=== PATIENT | female | born 2000 | race Caucasian/White ===

== ENCOUNTER 2024-02-01 08:38 | Inpatient (IN) | payer OTHER ==
[2024-02-01] VITALS (8 sets, daily range): BP systolic 100–120; BP diastolic 50–67; PULSE 64–70; RESP 18; TEMP 97–98.4; O2SAT 98–100
[~2024-02-01] VITALS: Ht 165.1 cm; Wt 70.3 kg
[2024-02-01 09:18] LABS: BASOPHILS # (AUTO) 0.1 K/uL (0.00-0.22); BASOPHILS % (AUTO) 0.4 % (0.0-2.0); EOSINOPHILS % (AUTO) 0.3 % (0.0-4.0); HEMATOCRIT 34.4 % (36-48); HEMOGLOBIN 11.4 g/dL (12.0-16.0); LYMPHOCYTES # (AUTO) 1.1 K/uL (2.5-16.5); MEAN CORPUSCULAR HEMOGLOBIN 28 pg (27-31); MEAN CORPUSCULAR HGB CONC 33 g/dL (33-37); MEAN CORPUSCULAR VOLUME 85.7 fL (80-94); MONOCYTES # (AUTO) 0.6 K/uL (0.8-1.0); MONOCYTES % (AUTO) 3.8 % (1.7-9.3); NEUTROPHILS # (AUTO) 14.4 K/uL (1.8-7.7); PLATELET COUNT (AUTO) 286 K/uL (140-450); RED BLOOD CELL COUNT(AUTO) 4.02 MIL/uL (4.20-5.40); RED CELL DISTRIBUTION WIDTH 14.2 % (11.6-13.7); WHITE BLOOD COUNT (AUTO) 16.2 K/uL (4.8-10.8)
[2024-02-01 09:33] LABS: LYMPHOCYTES % (AUTO) 6.9 % (20.5-51.1); NEUTROPHILS % (AUTO) 88.6 % (42.2-75.2)
[2024-02-01 09:44] LABS: CALCIUM 8.5 mg/dL (8.5-10.1); CARBON DIOXIDE 24.4 mmol/L (21-32); CREATININE 0.9 mg/dL (0.6-1.3); POTASSIUM 3.4 mmol/L (3.5-5.1)
[2024-02-01 09:50] LABS: ALBUMIN 3.8 g/dL (3.4-5.0); BILIRUBIN,DIRECT 0.1 mg/dL (0.0-0.3); TOTAL BILIRUBIN 0.4 mg/dL (0.0-1.0); TOTAL PROTEIN, SERUM 8.4 g/dL (6.4-8.2)
[2024-02-01] MEDS: NACL 0.9% 1,000 ML IV ONE (10:38)
[2024-02-01] MEDS: KETOROLAC 30 MG/ML VIAL IVP ONE (10:50)
[2024-02-01] MEDS: ONDANSETRON 4 MG/2 ML VIAL IVP ONE (10:50)
[2024-02-01 11:20] LABS: FLU A ANTIGEN negative (NEGATIVE); FLU B ANTIGEN NEGATIVE (NEGATIVE)
[2024-02-01] MEDS ORDERED: cefTRIAXone 1,000 MG VIAL ONE (13:27)
[2024-02-01 13:44] LABS: APPEARANCE,URINE CLEAR (CLEAR); BILIRUBIN,URINE NEGATIVE (NEGATIVE); BLOOD, URINE NEGATIVE (NEGATIVE); COLOR,URINE YELLOW (YELLOW); LEUKOCYTE ESTERASE ,URINE NEGATIVE (NEGATIVE); NITRITE, URINE NEGATIVE (NEGATIVE); PROTEIN,URINE NEGATIVE (NEGATIVE); UGLUCOSE NEGATIVE (NEGATIVE); UROBILINOGEN,URINE 0.2 EU/dL (0.2 - 1)
[2024-02-01] MEDS ORDERED: LORazepam 2 MG/ML VIAL IVP PRN (14:05)
[2024-02-01] MEDS ORDERED: MORPHINE SULFATE 2 MG/ML SYR IVP PRN (14:05)
[2024-02-01] MEDS ORDERED: ACETAMINOPHEN 325 MG TAB PO PRN (14:05)
[2024-02-01] MEDS ORDERED: ONDANSETRON 4 MG/2 ML VIAL IVP PRN ×3 (14:05→17:45)
[2024-02-01] MEDS: DEXT 5% /NACL 0.9% 1,000 ML IV SCH (14:05)
[2024-02-01] MEDS: metroNIDAZOLE 500 MG/NS PREMIX 100 ML IV ONE (14:10)
[2024-02-01] MEDS: LACTATED RINGERS 1,000 ML IV ONE (15:34)
[2024-02-01] MEDS: BUPIVACAINE-MPF 0.25% 30 ML VIAL INJ ONE (16:50)
[2024-02-01] MEDS: fentaNYL citrate 0.05 MG/ML VIAL ONE ×2 (16:54→17:05)
[2024-02-01] MEDS: ROCURONIUM 50 MG/5 ML VIAL IV ONE (16:55)
[2024-02-01] MEDS: MIDAZOLAM 2 MG/2 ML VIAL ONE (16:55)
[2024-02-01] MEDS: PROPOFOL 200 MG/20 ML VIAL IV ONE (16:55)
[2024-02-01] MEDS: KETOROLAC 60 MG/2 ML VIAL IM ONE (16:55)
[2024-02-01] MEDS: SUCCINYLCHOLINE CHLORIDE 200 MG/10 ML VIAL IVP ONE (16:56)
[2024-02-01] MEDS: ONDANSETRON 4 MG/2 ML VIAL ONE (16:56)
[2024-02-01] MEDS: NEOSTIGMINE 1:1000 10 MG/10 ML VIAL ONE (17:44)
[2024-02-01] MEDS ORDERED: OXYTOCIN 20 UNITS in LACTATED RINGERS 1,000 ML IV SCH (17:45)
[2024-02-01] MEDS ORDERED: HYDROmorphone 1 MG/ML AMP IVP PRN ×2 (17:45)
[2024-02-01] MEDS: GLYCOPYRROLATE 0.2 MG/ML VIAL ONE ×3 (17:45)
[2024-02-01] MEDS ORDERED: MEPERIDINE 25 MG/ML SYR IVP PRN (17:45)
[2024-02-01] MEDS: ACETAMINOPHEN 100 ML IV ONE (18:12)
[2024-02-01] MEDS: PIPERACILLIN/TAZOBACTAM 3.375 GM in DEXTROSE 5% 50 ML IV SCH (20:18)
[2024-02-01] MEDS: HYDROcodone/APAP 5/325 MG 1 TAB TAB PO PRN (20:59)
[2024-02-02] VITALS: BP 99/50; PULSE 60; RESP 18; TEMP 97.8; O2SAT 100
[2024-02-02 04:00] VITALS: BP 99/51; PULSE 60; RESP 18; TEMP 97.5; O2SAT 100
[2024-02-02 06:35] LABS: BASOPHILS # (AUTO) 0.1 K/uL (0.00-0.22); BASOPHILS % (AUTO) 0.6 % (0.0-2.0); EOSINOPHILS # (AUTO) 0.1 K/uL (0-0.4); EOSINOPHILS % (AUTO) 1.3 % (0.0-4.0); HEMATOCRIT 32.4 % (36-48); HEMOGLOBIN 10.8 g/dL (12.0-16.0); LYMPHOCYTES # (AUTO) 1.9 K/uL (2.5-16.5); LYMPHOCYTES % (AUTO) 21.2 % (20.5-51.1); MEAN CORPUSCULAR HEMOGLOBIN 29 pg (27-31); MEAN CORPUSCULAR HGB CONC 33 g/dL (33-37); MEAN CORPUSCULAR VOLUME 85.4 fL (80-94); MONOCYTES # (AUTO) 0.7 K/uL (0.8-1.0); NEUTROPHILS # (AUTO) 6.3 K/uL (1.8-7.7); NEUTROPHILS % (AUTO) 68.9 % (42.2-75.2); PLATELET COUNT (AUTO) 234 K/uL (140-450); RED CELL DISTRIBUTION WIDTH 14.3 % (11.6-13.7); WHITE BLOOD COUNT (AUTO) 9.1 K/uL (4.8-10.8)
[2024-02-02 06:43] LABS: ANION GAP 10.3 (8-16); CARBON DIOXIDE 27.2 mmol/L (21-32); CREATININE 0.8 mg/dL (0.6-1.3); POTASSIUM 3.5 mmol/L (3.5-5.1)
[2024-02-02 08:00] VITALS: BP 95/54; PULSE 68; RESP 20; TEMP 98; O2SAT 97; O2SAT 98
[2024-02-02] MEDS ORDERED: IBUP-2213 PO (09:37)
[2024-02-02] MEDS ORDERED: AMOX-999 PO (09:37)
== END 2024-02-02 14:49 | disposition home or self-care (01) | DRG 399 ==
LOC: MED 08:38 → MTU 14:05
PROVIDERS: ADMIT Student in an Organized Health Care Education/Training Program; ATTEND Student in an Organized Health Care Education/Training Program
PROC: 0DTJ4ZZ Resection of Appendix, Percutaneous Endoscopic Approach (ICD-10-PCS; principal; 2024-02-01 16:00)
DX: K35.80 Unspecified acute appendicitis (principal); Z20.822 Contact with and (suspected) exposure to COVID-19
CPT/HCPCS: 36415; 80048; 80076; 81003; 83690; 85025; 87040; 87081; 88304; 96361; 96365; 96375; 99285; J0330; J0696; J1885; J2250; J2405; J2543; J2590; J2704; J2710; J3010; J3490; J7030; J7060; J7120